=== PATIENT | male | born 1975 | race Caucasian/White ===

== ENCOUNTER → 2021-05-26 | Day surgery (SDC) | payer BC ==
[~2021-05-26] MED LIST: Flumazenil 0.1 MG/ML 10 ML MDV ONE; Lactated Ringers 1,000 ML IV SCH; Midazolam 1 MG/ML 2 ML SDV ONE; Propofol 200 MG/20 ML SDV ONE; fentaNYL 100 MCG/2 ML SDV ONE
--- NOTE | 2021-05-26 13:24 | OR ---
DATE OF OPERATION: 05/26/2021 PREOPERATIVE DIAGNOSIS: FAMILY HISTORY OF COLON CANCER. POSTOPERATIVE DIAGNOSIS: FAMILY HISTORY OF COLON CANCER. SURGEON: John Phillips MD PROCEDURE: FULL-LENGTH COLONOSCOPY. ANESTHESIA: MAC. COMPLICATIONS: None. SPECIMEN: None. FINDINGS: Normal full-length colonoscopy. RECOMMENDATIONS: Followup colonoscopy in 5 years. INDICATIONS: The patient has a family history of colon cancer in his mother. He is due for a 5-year scope. DESCRIPTION OF PROCEDURE: The patient is prepped and draped, placed in the left lateral decubitus position. A lubricated Olympus colonoscope was inserted and easily advanced to the cecum. Direct visualization of the ileocecal valve and appendiceal orifice was accomplished. The bowel prep was fine. Upon withdrawal, throughout the entire length of the colon, I could find no signs of any polyps, masses, ulceration, or bleeding sites. There were no vascular abnormalities or signs of colitis. No significant signs of diverticula. The rectal vault was benign. Retroflexion showed no perianal lesions. Air was suctioned. Scope was removed without complication. ASHLYN/JOSE /[id number]
== END ==
LOC: CC.SDS 11:42
PROVIDERS: ATTEND Family Medicine
DX: Z12.11 Encounter for screening for malignant neoplasm of colon (principal); J45.909 Unspecified asthma, uncomplicated; I10 Essential (primary) hypertension; E78.5 Hyperlipidemia, unspecified; E66.01 Morbid (severe) obesity due to excess calories; Z80.0 Family history of malignant neoplasm of digestive organs; Z88.8 Allergy status to other drugs, medicaments and biological substances; Z79.899 Other long term (current) drug therapy; Z98.890 Other specified postprocedural states; Z87.891 Personal history of nicotine dependence; Z68.41 Body mass index [BMI] 40.0-44.9, adult
CPT/HCPCS: 45378; J7120